=== PATIENT | female | born 1970 | race Caucasian/White ===

== ENCOUNTER → 2020-08-27 | Outpatient (CLI) | payer BC ==
--- NOTE | 2020-09-01 17:22 | RAD ---
EXAM: Bilateral digital screening mammogram with tomosynthesis. HISTORY: 50-year-old female presents for screening mammography. TECHNIQUE: Full-field digital craniocaudal and mediolateral oblique 2D and 3D tomosynthesis images of both breasts are obtained for evaluation. Computer aided detection was applied. COMPARISON: 07/28/2017 BREAST PARENCHYMAL DENSITY: Level C - Heterogeneously dense. FINDINGS: There is a small nodular asymmetry within the anterior to mid 3:00 position of the left melani ast in the craniocaudal projection, without a clear correlate in the mediolateral oblique projection or on the prior study. There are additional areas of asymmetry which are stable in appearance. There is no architectural distortion. IMPRESSION: BI-RADS Category 0: Additional imaging needed. RECOMMENDATION: Further evaluation with a full field true lateral view and spot compression craniocau jess view of the left breast to assess nodular asymmetry at the 3:00 position is recommended. Sonograp hic imaging can also be performed if deemed indicated based on additional mammographic findings. If your mammogram demonstrates that you have dense breast tissue, which could hide abnormalities, and if you have other risk factors for breast cancer that have been identified, you might benefit from s upplemental screening tests that may be suggested by your ordering physician. Dense breast tissue, i n and of itself, is a relatively common condition. This information is not provided to cause undue c oncern, but rather to raise your awareness and to promote discussion with your physician regarding th e presence of other risk factors, in addition to dense breast tissue. A report of your mammography re sults will be sent to you and your physician. You should contact your physician if you have any ques tions or concerns regarding this report. Mammography is a sensitive method for finding small breast cancers, but it does not detect them all a nd is not a substitute for careful clinical examination. A negative mammogram does not negate a clin ically suspicious finding and should not result in delay in biopsying a clinically suspicious abnorma lity. PQRS compliance statement - Patient information was entered into a reminder system with a target due date for the next mammogram. "Our facility is accredited by the [employer] Mammography [employer]." Electronically signed by: Zulma Staley MD (09/01/2020 5:20 PM) [id number]
== END ==
LOC: MAMMO 09:47
PROVIDERS: ATTEND Obstetrics & Gynecology
DX: Z12.31 Encounter for screening mammogram for malignant neoplasm of breast (principal)
CPT/HCPCS: 77063; 77067

== ENCOUNTER → 2021-11-29 | Outpatient (CLI) | payer OTHER ==
--- NOTE | 2021-11-29 15:39 | RAD ---
Bilateral digital screening 2-D and 3-D (digital breast tomosynthesis) mammogram: Reason for examination: Routine screening. Comparison: Mammograms from 08/27/2020. Interpretation was made with the benefit of CAD. FINDINGS: Breast density: Category B. There are scattered areas of fibroglandular density. There is an oval circumscribed 1.4 cm mass in the 10:00 position of the right breast about 2.5 cm nip ple. The not seen on the 2020 mammogram. No other evidence of a suspicious breast mass is identified. No malignant appearing calcifications or architectural distortion is seen. IMPRESSION: 1.4 cm mass in the 10:00 position right breast about 2.5 cm from the nipple. Further evaluation with targeted right breast ultrasound is recommended. Assessment: BI-RADS 0. Incomplete. Additional imaging is recommended. Recommendation: Targeted right breast ultrasound. The patient be contacted with results and asked to schedule for additional imaging. The patient will receive a letter with the results in the mail. Patient information will be entered into the [email or web address] reminder system with a target recall date for the next mammogram. A reminder letter will be genera helene. Electronically signed by: Aleta Pinon MD (11/29/2021 3:36 PM) [id number]
== END ==
LOC: MAMMO 10:57
PROVIDERS: ATTEND Obstetrics & Gynecology
DX: Z12.31 Encounter for screening mammogram for malignant neoplasm of breast (principal)
CPT/HCPCS: 77063; 77067

== ENCOUNTER → 2021-12-06 | Outpatient (CLI) | payer OTHER ==
--- NOTE | 2021-12-06 13:53 | RAD ---
DIAGNOSTIC RIGHT BREAST ULTRASOUND INDICATION: Call back for right breast asymmetry COMPARISON: Mammogram 11/29/2021, 08/27/2020 FINDINGS: In the right breast 10:00 radial, 2 cm from the nipple, there hypoechoic mass measuring 1.3 x 0.9 x 0 .9 cm which is minimally wider than tall and demonstrates some posterior acoustic enhancement and mar ginal shadowing. A few foci of color Doppler flow identified. In the right axilla lymph node measurin g 1.7 x 1.4 x 1.2 cm with focally thickened cortex measuring 0.4 cm. IMPRESSION: 1. Right breast mass measuring 1.3 cm in greatest dimension the 10:00 radial 2 cm from the nipple. 2. Right axillary lymph node with focal cortical thickening to 0.4 cm. ASSESSMENT: BI-RADS 4: Suspicious for Malignancy. RECOMMENDATION: Ultrasound-guided biopsy of right breast mass and right axillary lymph node. The charlie ent was notified by the senior research consultant of the findings and recommendation. The patient with be sche duled for ultrasound biopsy Electronically signed by: Jamey Perea MD (12/06/2021 1:50 PM) [id number]
== END ==
LOC: US 12:52
PROVIDERS: ATTEND Obstetrics & Gynecology
DX: N63.11 Unspecified lump in the right breast, upper outer quadrant (principal); N64.89 Other specified disorders of breast
CPT/HCPCS: 76641